=== PATIENT | female | born 1965 | race Two or more races ===

== ENCOUNTER 2021-12-09 12:29 | Emergency (ER) | payer SELFPAY ==
[~2021-12-09] VITALS: Ht 154.9 cm; Wt 81.6 kg
[2021-12-09] MEDS ORDERED: DexAMETHasone SOD PHOS 10MG/1ML VIAL INJ IM ONE (14:30)
[2021-12-09] MEDS ORDERED: cefTRIAXone SOD 1,000 MG VL IM ONE (14:30)
[2021-12-09] MEDS ORDERED: AZIT500T66 PO (14:35)
[2021-12-09] MEDS ORDERED: BENZ100C97 PO (14:35)
[2021-12-09 14:52] VITALS: BP 120/79
== END 2021-12-09 15:48 | disposition home or self-care (01) ==
LOC: ER 12:34
DX: J06.9 Acute upper respiratory infection, unspecified (principal); J02.9 Acute pharyngitis, unspecified; Z20.822 Contact with and (suspected) exposure to COVID-19
CPT/HCPCS: 36415; 71046; 87426; 96372; 99284; J0696; J1100

== ENCOUNTER 2022-03-23 04:12 | Emergency (ER) | payer SELFPAY ==
[2022-03-23 04:12] VITALS: BP 123/75
[~2022-03-23 04:12] MED LIST: AZIT500T66 PO; BENZ100C97 PO
[2022-03-23 06:06] LABS: Basophils # (auto) 0.1 10 ^3/uL (0-0.2); Basophils % (auto) 1.2 % (0.0-2.0); Eosinophils # (auto) 0.8 10 ^3/uL (0-0.8); Eosinophils % (auto) 9.7 % (0.0-7.0); Lymphocytes # (auto) 1.9 10 ^3/uL (0.4-5.4); Lymphocytes % (auto) 24.6 % (10.0-50.0); Mean Corpuscular Hemoglobin 31.5 pg (28.0-32.0); Mean Corpuscular Hgb Conc. 34.9 g/dL (32.0-36.0); Mean Corpuscular Volume 90.2 fL (80.0-100.0); Monocytes # (auto) 0.7 10 ^3/uL (0-1.3); Neutrophils # (auto) 4.3 10 ^3/uL (1.6-8.6); Neutrophils % (auto) 55.5 % (37.0-80.0); Nucleated Red Blood Cells % 0.1 %; Red Blood Cells 4.43 10^6/uL (4.0-5.20); Red Cell Distribution Width 13.3 % (11.8-14.3); White Blood Cell 7.7 10^3/uL (4.4-10.8)
[2022-03-23 06:23] LABS: Albumin 3.6 g/dL (3.4-5.0); Calcium 9.1 mg/dL (8.5-10.1); Potassium 3.7 mmol/L (3.5-5.1)
[2022-03-23 06:32] LABS: Bilirubin, Total 0.4 mg/dL (0.2-1.0); Total Protein 6.8 g/dL (6.4-8.2)
[2022-03-24] MEDS ORDERED: PRED20TA2 PO (02:17)
== END 2022-03-23 11:41 | disposition left against medical advice (07) ==
LOC: ER 04:12
DX: R06.02 Shortness of breath (principal); R05.9 Cough, unspecified; Z53.21 Procedure and treatment not carried out due to patient leaving prior to being seen by health care provider
CPT/HCPCS: 36415; 71045; 80053; 83880; 84484; 85025; 93005

== ENCOUNTER 2022-03-23 19:36 | Emergency (ER) | payer BC, OTHER ==
[~2022-03-23] VITALS: Ht 154.9 cm; Wt 88.5 kg
[2022-03-24] MEDS ORDERED: PRED20TA2 PO (02:17)
[2022-03-24 02:22] VITALS: BP 126/82
== END 2022-03-24 02:34 | disposition home or self-care (01) ==
LOC: ER 19:36
DX: R05.3 Chronic cough (principal); I10 Essential (primary) hypertension
CPT/HCPCS: 93005

== ENCOUNTER 2022-09-05 20:59 | Inpatient (IN) | payer BC ==
[~2022-09-05] VITALS: Ht 152.4 cm; Wt 96.8 kg
[~2022-09-05 20:59] MED LIST changes: +PRED20TA2 PO
[2022-09-05 21:29] LABS: Basophils # (auto) 0.1 10 ^3/uL (0-0.2); Basophils % (auto) 0.8 % (0.0-2.0); Eosinophils # (auto) 0.1 10 ^3/uL (0-0.8); Eosinophils % (auto) 0.7 % (0.0-7.0); Hematocrit 44.4 % (36.0-46.0); Hemoglobin 14.7 g/dL (12.2-16.2); Lymphocytes # (auto) 1.4 10 ^3/uL (0.4-5.4); Lymphocytes % (auto) 10.1 % (10.0-50.0); Mean Corpuscular Hemoglobin 29.8 pg (28.0-32.0); Mean Corpuscular Hgb Conc. 33.1 g/dL (32.0-36.0); Monocytes # (auto) 0.8 10 ^3/uL (0-1.3); Monocytes % (auto) 5.9 % (0.0-12.0); Neutrophils # (auto) 11.5 10 ^3/uL (1.6-8.6); Neutrophils % (auto) 82.5 % (37.0-80.0); Red Blood Cells 4.94 10^6/uL (4.0-5.20); Red Cell Distribution Width 13.5 % (11.8-14.3)
[2022-09-05 21:49] LABS: Albumin 4.1 g/dL (3.4-5.0); Calcium 9.3 mg/dL (8.5-10.1); Potassium 5.2 mmol/L (3.5-5.1)
[2022-09-05 21:54] LABS: BUN/Creatinine Ratio 20.2; Bilirubin, Total 0.9 mg/dL (0.2-1.0); CRP High Sensitivity 0.34 mg/dL (< 0.3); Total Protein 7.7 g/dL (6.4-8.2)
[2022-09-05] MEDS ORDERED: SODIUM CHLORIDE 0.9% 1,000 ML IV ONE (23:45)
[2022-09-05] MEDS ORDERED: fentaNYL CITRATE 100 MCG/2 ML VL IV ONE (23:45)
[2022-09-05] MEDS ORDERED: PIPERACILLIN-TAZOB 3.375GM 100 ML IV ONE (23:45)
[2022-09-05] MEDS ORDERED: ONDANSETRON HCL 4 MG/2 ML VIAL IV ONE (23:45)
[2022-09-06] VITALS (7 sets, daily range): BP systolic 100–142; BP diastolic 66–84
[2022-09-06] MEDS ORDERED: fentaNYL CITRATE 100 MCG/2 ML VL IM ONE
[2022-09-06] MEDS ORDERED: ONDANSETRON HCL 4 MG/2 ML VIAL IV PRN (00:45)
[2022-09-06] MEDS ORDERED: ACETAMINOPHEN 325 MG TAB PO PRN (00:45)
[2022-09-06] MEDS ORDERED: DOCUSATE SOD 100 MG CAP PO PRN (00:45)
[2022-09-06] MEDS ORDERED: NITROGLYCERIN 0.4 MG SL TAB SL PRN (02:30)
[2022-09-06] MEDS ORDERED: MORPHINE SULFATE INJ 2 MG/ml SYRG IV PRN (02:30)
[2022-09-06] MEDS: cefTRIAXone 1GM/50ML D5W 50 ML IV SCH (03:39)
[2022-09-06] MEDS: metroNIDAZOLE 500MG/100ML 100 ML IV SCH ×3 (04:12→20:36)
[2022-09-06] MEDS: SOD CHL 0.45% 1,000 ML IV SCH ×3 (04:13→21:08)
[2022-09-06 04:17] LABS: Basophils # (auto) 0.1 10 ^3/uL (0-0.2); Basophils % (auto) 0.4 % (0.0-2.0); Eosinophils # (auto) 0 10 ^3/uL (0-0.8); Eosinophils % (auto) 0.1 % (0.0-7.0); Hematocrit 41.6 % (36.0-46.0); Lymphocytes # (auto) 0.9 10 ^3/uL (0.4-5.4); Lymphocytes % (auto) 7.3 % (10.0-50.0); Mean Corpuscular Hemoglobin 30.3 pg (28.0-32.0); Mean Corpuscular Hgb Conc. 33.7 g/dL (32.0-36.0); Mean Corpuscular Volume 89.9 fL (80.0-100.0); Monocytes # (auto) 0.6 10 ^3/uL (0-1.3); Monocytes % (auto) 4.8 % (0.0-12.0); Neutrophils # (auto) 10.3 10 ^3/uL (1.6-8.6); Neutrophils % (auto) 87.4 % (37.0-80.0); Red Blood Cells 4.64 10^6/uL (4.0-5.20); Red Cell Distribution Width 13.5 % (11.8-14.3); White Blood Cell 11.8 10^3/uL (4.4-10.8)
[2022-09-06] MEDS: HYDROcodone-ACET 5/325MG TAB PO PRN (04:23)
[2022-09-06 04:33] LABS: INR 0.97 (0.9-1.15); Partial Thromboplastin Time 30.7 sec (24.6-33.4)
[2022-09-06 04:36] LABS: Potassium 3.6 mmol/L (3.5-5.1)
[2022-09-06 04:41] LABS: Albumin 3.9 g/dL (3.4-5.0)
[2022-09-06 04:43] LABS: Bilirubin, Total 1.2 mg/dL (0.2-1.0); Total Protein 7.2 g/dL (6.4-8.2)
[2022-09-06 05:00] LABS: Urine Bacteria FEW /hpf (None Seen); Urine Blood TRACE /uL (Negative); Urine Hyaline Cast FEW /lpf (0 - 2); Urine Mucus FEW (None Seen); Urine Specific Gravity 1.025 (1.001-1.035); Urine WBC 1 /hpf (0 - 5)
[2022-09-06] MEDS ORDERED: LEVO112T4 PO (08:13)
[2022-09-06] MEDS ORDERED: HYDR25TA5 PO (08:13)
[2022-09-06] MEDS ORDERED: INFLUENZA QUAD 2022-2023 0.5 ML SYRG IM ONE (08:15)
[2022-09-06] MEDS ORDERED: SUCCINYLCHOLINE CHLORIDE 20 MG/ML 10ML VIAL IV ONE (09:28)
[2022-09-06] MEDS ORDERED: fentaNYL CITRATE 100 MCG/2 ML VL ONE (09:31)
[2022-09-06] MEDS ORDERED: LIDOCAINE 2% (LOCAL ANESTH.) PF 5ml SDV ONE (09:31)
[2022-09-06] MEDS ORDERED: DexAMETHasone SOD PHOS 10MG/1ML VIAL INJ ONE (09:31)
[2022-09-06] MEDS ORDERED: ONDANSETRON HCL 4 MG/2 ML VIAL ONE (09:31)
[2022-09-06] MEDS ORDERED: KETOROLAC TROMETH 60MG/2ML VIAL ONE (09:31)
[2022-09-06] MEDS ORDERED: MIDAZOLAM HCL 2MG/2ML 2ml VIAL (1mg/ml) ONE (09:31)
[2022-09-06] MEDS ORDERED: PROPOFOL 10 MG/ML 20 ML IV ONE (09:32)
[2022-09-06] MEDS ORDERED: ROCURONIUM 10MG/ML 10ML VIAL IV ONE (09:34)
[2022-09-06] MEDS ORDERED: SUGAMMADEX 200mg/2ml Vial (100MG/ML) IV ONE (10:05)
[2022-09-06] MEDS ORDERED: HYDROmorphone HCL 2 MG/ML VL/or syr IV PRN ×2 (11:00)
[2022-09-06] MEDS ORDERED: LABETALOL HCL 5 MG/ML 4ML SYRINGE IV PRN (11:00)
[2022-09-06] MEDS ORDERED: METOCLOPRAMIDE HCL 5MG/ml INJ 2ml VIAL IV PRN (11:00)
[2022-09-06] MEDS: MORPHINE SULFATE INJ 2 MG/ml SYRG IV PRN ×2 (16:23→20:37)
[2022-09-07] MEDS: cefTRIAXone 1GM/50ML D5W 50 ML IV SCH (02:25)
[2022-09-07] MEDS: metroNIDAZOLE 500MG/100ML 100 ML IV SCH ×3 (04:09→20:27)
[2022-09-07 04:12] LABS: Basophils # (auto) 0 10 ^3/uL (0-0.2); Basophils % (auto) 0.4 % (0.0-2.0); Eosinophils # (auto) 0 10 ^3/uL (0-0.8); Hematocrit 37.2 % (36.0-46.0); Hemoglobin 12.5 g/dL (12.2-16.2); Lymphocytes # (auto) 0.9 10 ^3/uL (0.4-5.4); Lymphocytes % (auto) 7.8 % (10.0-50.0); Mean Corpuscular Hemoglobin 30.1 pg (28.0-32.0); Mean Corpuscular Hgb Conc. 33.6 g/dL (32.0-36.0); Mean Corpuscular Volume 89.6 fL (80.0-100.0); Monocytes # (auto) 1.1 10 ^3/uL (0-1.3); Monocytes % (auto) 9.5 % (0.0-12.0); Neutrophils # (auto) 9.2 10 ^3/uL (1.6-8.6); Neutrophils % (auto) 82.3 % (37.0-80.0); Red Blood Cells 4.15 10^6/uL (4.0-5.20); Red Cell Distribution Width 13.3 % (11.8-14.3); White Blood Cell 11.2 10^3/uL (4.4-10.8)
[2022-09-07 04:42] LABS: Potassium 4.2 mmol/L (3.5-5.1)
[2022-09-07 04:51] LABS: Albumin 3.2 g/dL (3.4-5.0); BUN/Creatinine Ratio 27.2; Bilirubin, Total 0.6 mg/dL (0.2-1.0); Calcium 8.8 mg/dL (8.5-10.1); Total Protein 6.1 g/dL (6.4-8.2)
[2022-09-07 05:04] VITALS: BP 104/62
[2022-09-07] MEDS: LEVOTHYROXINE SODIUM 112 MCG TAB PO SCH (06:32)
[2022-09-07] MEDS: HCTZ 25 MG TAB PO SCH (06:40)
[2022-09-07] MEDS: POTASSIUM CHL 10 Meq TABLET PO SCH (09:11)
[2022-09-07] MEDS: HYDROcodone-ACET 5/325MG TAB PO PRN ×2 (09:11→20:31)
[2022-09-07 09:29] VITALS: BP 107/55
[2022-09-07 13:06] VITALS: BP 101/54
[2022-09-07] MEDS ORDERED: THROAT LOZENGES(CEPASTAT) MT PRN (14:15)
[2022-09-07] MEDS: SOD CHL 0.45% 1,000 ML IV SCH (16:54)
[2022-09-07 17:14] VITALS: BP 109/70
[2022-09-07 21:33] VITALS: BP 102/59
[2022-09-08] MEDS: HYDROcodone-ACET 5/325MG TAB PO PRN ×2 (01:58→20:28)
[2022-09-08] MEDS: cefTRIAXone 1GM/50ML D5W 50 ML IV SCH (02:31)
[2022-09-08] MEDS: metroNIDAZOLE 500MG/100ML 100 ML IV SCH ×3 (04:21→20:28)
[2022-09-08 04:45] VITALS: BP 118/75
[2022-09-08] MEDS: HCTZ 25 MG TAB PO SCH (06:32)
[2022-09-08] MEDS: LEVOTHYROXINE SODIUM 112 MCG TAB PO SCH (06:32)
[2022-09-08 08:00] VITALS: BP 113/64
[2022-09-08] MEDS: ENOXAPARIN SOD 30 MG/0.3 ML SYRINGE SC SCH (09:33)
[2022-09-08] MEDS: POTASSIUM CHL 10 Meq TABLET PO SCH (09:33)
[2022-09-08 12:00] VITALS: BP 118/64
[2022-09-08] MEDS: SOD CHL 0.45% 1,000 ML IV SCH (12:28)
[2022-09-08] MEDS ORDERED: LEVO500T31 PO (15:03)
[2022-09-08] MEDS ORDERED: POTA-167 PO (15:03)
[2022-09-08] MEDS ORDERED: METR500T PO (15:03)
[2022-09-08 15:42] VITALS: BP 118/64
[2022-09-08 16:00] VITALS: BP 113/64
[2022-09-08 16:13] LABS: Basophils # (auto) 0.1 10 ^3/uL (0-0.2); Eosinophils # (auto) 0.2 10 ^3/uL (0-0.8); Eosinophils % (auto) 2.8 % (0.0-7.0); Hemoglobin 12.4 g/dL (12.2-16.2); Lymphocytes # (auto) 1.9 10 ^3/uL (0.4-5.4); Lymphocytes % (auto) 25.3 % (10.0-50.0); Mean Corpuscular Hemoglobin 30.1 pg (28.0-32.0); Mean Corpuscular Hgb Conc. 33.4 g/dL (32.0-36.0); Monocytes # (auto) 0.7 10 ^3/uL (0-1.3); Monocytes % (auto) 9.6 % (0.0-12.0); Neutrophils # (auto) 4.6 10 ^3/uL (1.6-8.6); Neutrophils % (auto) 61.3 % (37.0-80.0); Red Blood Cells 4.11 10^6/uL (4.0-5.20); Red Cell Distribution Width 13.3 % (11.8-14.3); White Blood Cell 7.4 10^3/uL (4.4-10.8)
[2022-09-08 22:18] VITALS: BP 119/80
[2022-09-09] MEDS: cefTRIAXone 1GM/50ML D5W 50 ML IV SCH (02:02)
[2022-09-09] MEDS: metroNIDAZOLE 500MG/100ML 100 ML IV SCH ×2 (04:36→11:38)
[2022-09-09 05:34] VITALS: BP 131/79
[2022-09-09] MEDS: LEVOTHYROXINE SODIUM 112 MCG TAB PO SCH (06:04)
[2022-09-09] MEDS: HCTZ 25 MG TAB PO SCH (06:05)
[2022-09-09 08:00] VITALS: BP 130/78
[2022-09-09] MEDS: SOD CHL 0.45% 1,000 ML IV SCH (08:45)
[2022-09-09] MEDS: POTASSIUM CHL 10 Meq TABLET PO SCH (10:04)
[2022-09-09] MEDS: ENOXAPARIN SOD 30 MG/0.3 ML SYRINGE SC SCH (10:05)
[2022-09-09 12:00] VITALS: BP 132/69
== END 2022-09-09 12:30 | disposition home or self-care (01) | DRG 342 ==
LOC: ER 20:59 → OVERFLOW 09-06 02:29 → CENTRAL 09-06 04:54
PROVIDERS: ADMIT Nurse Practitioner Family; ATTEND Internal Medicine
PROC: 0DTJ4ZZ Resection of Appendix, Percutaneous Endoscopic Approach (ICD-10-PCS; principal; 2022-09-06 09:37)
DX: K35.80 Unspecified acute appendicitis (principal); Z68.41 Body mass index [BMI] 40.0-44.9, adult; I10 Essential (primary) hypertension; E66.01 Morbid (severe) obesity due to excess calories; E03.9 Hypothyroidism, unspecified; E87.5 Hyperkalemia; K56.41 Fecal impaction; Z20.822 Contact with and (suspected) exposure to COVID-19
CPT/HCPCS: 36415; 74176; 80053; 81001; 83605; 83690; 84484; 85025; 85610; 85730; 86141; 86850; 86900; 86901; 87040; 87426; 93005; 96361; 96365; 96372; 96375; G0378; J0330; J0696; J1100; J1885; J2001; J2250; J2405; J2543; J2704; J3490

== ENCOUNTER 2024-06-04 10:28 | Emergency (ER) | payer BC, OTHER ==
[~2024-06-04] VITALS: Ht 154.9 cm; Wt 87.0 kg
[~2024-06-04 10:28] MED LIST changes: -AZIT500T66 PO; -BENZ100C97 PO; +HYDR25TA5 PO; +LEVO112T4 PO; +LEVO500T31 PO; +METR500T PO; +POTA-211 PO; -PRED20TA2 PO
[2024-06-04] MEDS ORDERED: TRAM-626 PO (11:58)
[2024-06-04] MEDS ORDERED: AUG875T PO (11:58)
[2024-06-04 12:07] VITALS: BP 135/76; PULSE 70; RESP 20; TEMP 98.4; O2SAT 97
[2024-06-04] MEDS: HYDROcodone-ACET 5/325MG TAB PO ONE (12:07)
== END 2024-06-04 12:33 | disposition home or self-care (01) ==
LOC: ER 10:28
DX: K04.7 Periapical abscess without sinus (principal); H66.91 Otitis media, unspecified, right ear; I10 Essential (primary) hypertension; Z79.899 Other long term (current) drug therapy

== ENCOUNTER 2024-09-02 00:10 | Inpatient (IN) | payer OTHER ==
[2024-09-02] VITALS (12 sets, daily range): BP systolic 127–151; BP diastolic 55–94; PULSE 81–96; RESP 16–19; TEMP 98.4–98.7; O2SAT 91–100
[~2024-09-02] VITALS: Ht 154.9 cm; Wt 87.5 kg
[~2024-09-02 00:10] MED LIST changes: +AUG875T PO; +TRAM-626 PO
--- NOTE | 2024-09-02 00:34 | ED.PDOC ---
SOB-HPI HPI Comments 59-year-old female who came to ER for shortness of breath. Patient does have history of hypertension, asthma, and CHF. Ever since she tested positive for COVID-19 last April 2024, she has been experiencing episodes of productive cough, shortness of breath, chest discomfort, orthopnea. Patient seen in medicated with prednisone, montelukast, inhalers among others but provided only temporary relief. Progressive worsening of shortness of breath prompted patient to come to the ER. Chief Complaint: Shortness of Breath Time Seen by MD: 00:34 Primary Care Provider: Dr. 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 Family History Family History: Reviewed,noncontributory to illness Social History Smoker: Non-Smoker Alcohol: Denies ETOH Use Drugs: Denies Drug Use Lives In: Home Constitutional: denies: chills, diaphoresis, fatigue, fever, malaise, sweats, weakness, others EENTM: reports: nose congestion Respiratory: reports: cough, orthopnea, SOB at rest, shortness of breath, SOB with excertion; denies: hemoptysis, stridor, wheezing, others Cardiovascular: denies: chest pain, dizzy spells, diaphoresis, Dyspnea on exertion, edema, irregular heart beat, left arm pain, lightheadedness, palpitations, PND, syncope, others Gastrointestinal: denies: abdomen distended, abdominal pain, blood streaked bowels, constipated, diarrhea, dysphagia, difficulty swallowing, hematemesis, melena, nausea, poor appetite, poor fluid intake, rectal bleeding, rectal pain, vomiting, others Genitourinary: denies: abnormal vagina bleeding, burning, dyspareunia, dysuria, flank pain, frequency, hematuria, incontinence, pain, , vagina discharge, urgency, others Neurological: denies: dizziness, fainting, headache, left sided numbness, left sided weakness, numbness, paresthesia, pre-existing deficit, right sided numbness, right sided weakness, seizure, speech problems, tingling, tremors, weakness, others Musculoskeletal: denies: back pain, gout, joint pain, joint swelling, muscle pain, muscle stiffness, neck pain, others Integumetry: denies: bruises, change in color, change in hair/nails, dryness, laceration, lesions, lumps, rash, wounds, others Allergic/Immunocompromised: denies: Difficulty Healing, Frequent Infections, Hives, Itching, others Hematologic/Lymphatic: denies: anemia, blood clots, easy bleeding, easy bruising, swollen glands, others Endocrine: denies: excessive hunger, excessive sweating, excessive thirst, excessive urination, flushing, intolerance to cold, intolerance to heat, unexplained weight gain, unexplained weight loss, others Psychiatric: denies: anxiety, bipolar disorder, depression, hopeless, panic disorder, schizophrenia, sleepless, suicidal, others Physical Exam General Appearance: No Apparent Distress, Normal HEENT: Normal ENT Inspection, Pharynx Normal, TMs Normal Neck: Full Range of Motion, Non-Tender, Normal, Normal Inspection Respiratory: Chest Non-Tender, Decreased Breath Sounds, No Accessory Muscle Use, No Respiratory Distress Cardiovascular: No Edema, No JVD, No Murmur, No Gallop, Normal Peripheral Pulses, Regular Rate/Rhythm Breast Exam: Deferred Gastrointestinal: No Organomegaly, Non Tender, No Pulsatile Mass, Normal Bowel Sounds, Soft Genitalia: Deferred Pelvic: Deferred Rectal: Deferred Extremities: No calf tenderness, Normal capillary refill, Normal inspection, Normal range of motion, Non-tender, No pedal edema Musculoskeletal : Apperance: Normal Neurologic: Alert, contract assistant II-XII nml as Tested, No Motor Deficits, Normal Affect, Normal Mood, No Sensory Deficits Cerebellar Function: Normal Reflexes: Normal Skin: Dry, Normal Color, Warm Lymphatic: No Adenopathy Was a procedure done? Was a procedure done?: No Differential Dx Differential Diagnosis: Asthma, CHF, COPD, Myocardial infarction, Pneumonia, Respiratory Distress X-Ray, Labs, Meds, VS Vital Signs Date Time Temp Pulse Resp B/P (MAP) Pulse Ox O2 Delivery O2 Flow Rate FiO2 09/02/24 00:53 94 Room Air* 0 21 09/02/24 00:53 94 Room Air 0.0 09/02/24 00:26 94 09/02/24 00:13 22 95 Room Air* 0 21 09/02/24 00:13 98.6 96 22 151/94 (113) 95 Lab Test 09/02/24 01:23 09/02/24 00:30 Range/Units Troponin I High Sensitivity < 3 L < 3 L </=34 ng/L White Blood Count 9.5 4.4-10.8 10^3/uL Red Blood Count 4.69 4.0-5.20 10^6/uL Hemoglobin 14.1 12.2-16.2 g/dL Hematocrit 42.9 36.0-46.0 % Mean Corpuscular Volume 91.3 80.0-100.0 fL Mean Corpuscular Hemoglobin 30.1 28.0-32.0 pg Mean Corpuscular Hemoglobin Concent 33.0 32.0-36.0 g/dL Red Cell Distribution Width 13.5 11.8-14.3 % Platelet Count 207 140-450 10^3/uL Mean Platelet Volume 8.5 6.9-10.8 fL Neutrophils (%) (Auto) 54.2 37.0-80.0 % Lymphocytes (%) (Auto) 23.1 10.0-50.0 % Monocytes (%) (Auto) 10.3 0.0-12.0 % Eosinophils (%) (Auto) 11.8 H 0.0-7.0 % Basophils (%) (Auto) 0.6 0.0-2.0 % Neutrophils # (Auto) 5.1 1.6-8.6 10 ^3/uL Lymphocytes # (Auto) 2.2 0.4-5.4 10 ^3/uL Monocytes # (Auto) 1.0 0-1.3 10 ^3/uL Eosinophils # (Auto) 1.1 H 0-0.8 10 ^3/uL Basophils # (Auto) 0.1 0-0.2 10 ^3/uL Nucleated Red Blood Cells 0.0 % Sodium Level 144 136-145 mmol/L Potassium Level 3.0 L 3.5-5.1 mmol/L Chloride Level 109 H 98-107 mmol/L Carbon Dioxide Level 30 20-31 mmol/L Anion Gap 5 5-15 Blood Urea Nitrogen 19 9-23 mg/dL Creatinine 0.79 0.550-1.02 mg/dL Glomerular Filtration Rate Calc 85 >90 mL/min BUN/Creatinine Ratio 24.1 H 10.0-20.0 Serum Glucose 97 74-106 mg/dL Calcium Level 9.5 8.7-10.4 mg/dL B-Type Natriuretic Peptide 13.04 0-100 pg/mL Current Medications Medications (Trade) Dose Ordered Sig/Rachael Route Start Time Stop Time Status Last Admin Albuterol (Ventolin Medneb) 5 mg ONCE ONCE NEB 09/02/24 00:30 09/02/24 00:31 DC 09/02/24 00:53 Ipratropium [place] (Atrovent Medneb) 0.5 mg ONCE ONCE NEB 09/02/24 00:30 09/02/24 00:31 DC 09/02/24 00:53 Time of 1ST Reevaluation: 00:30 Reevaluation 1ST: Unchanged Patient Education/Counseling: Diagnosis, Treatment Family Education/Counseling: No Family Present Departure 1 Departure Time of Disposition: 03:54 (Patient presented with chest pain and shortness of breath that was concerning for possible STEMI, ACS, PE, Pneumonia, Muscle Strain, COPD, Dissection. Data: 1. I ordered and reviewed the result of at least 3 labs including a CBC, BMP, and Troponin. 2. I independently interpreted the following tests: EKG which shows sinus arrhythmia and Chest X-ray which shows benign chest.Risk:This patient has a high risk of morbidity due to further diagnostic testing or treatment and may suffer from an acute cardiac or respiratory disorder. Workup reveals concern for COPD exacerbation versus CHF exacerbation and patient should be admitted for further workup and possible expert consultation. ) Impression: Primary Impression: Acute chest pain Additional Impression: Shortness of breath Disposition: ADMITTED INPATIENT Admit to: Med Surg Condition: Serious Critical Care Note Critical Care Time?: Yes (35 min-critical care time only) Critical care comment: Acute shortness of breath Authorized and Performed by: Ruby Gaitan MD Total critical care time: Approximately 34 minutes Due to a high probability of clinically significant, life threatening deterioration, the patient required my highest level of preparedness to intervene emergently and I personally spent this critical care time directly and personally managing the patient. This critical care time included obtaining a history; examining the patient; pulse oximetry; ordering and review of studies; arranging urgent treatment with development of a management plan; evaluation of patient's response to treatment; frequent reassessment; and, discussions with other providers. This critical care time was performed to assess and manage the high probability of imminent, life-threatening deterioration that could result in multi-organ failure. It was exclusive of separately billable procedures and treating other patients and teaching time. Please see my other sections and the rest of the note for further information on patient assessment and treatment. Stability Stability form required: No Heart Score Heart Score: Heart Score Response (Comments) Value History N/A 0 EKG N/A 0 Age N/A 0 Risk Factors N/A 0 Troponin N/A 0 Total 0 I personally scribed for RUBY GAITAN MD ([email or web address]) on 09/02/24 at 00:34. Electronically submitted by Shon Clarke ([email or web address]). RUBY GAITAN MD Sep 02, 2024 00:34
[2024-09-02 00:41] LABS: Basophils # (auto) 0.1 10 ^3/uL (0-0.2); Basophils % (auto) 0.6 % (0.0-2.0); Eosinophils # (auto) 1.1 10 ^3/uL (0-0.8); Eosinophils % (auto) 11.8 % (0.0-7.0); Hematocrit 42.9 % (36.0-46.0); Hemoglobin 14.1 g/dL (12.2-16.2); Lymphocytes # (auto) 2.2 10 ^3/uL (0.4-5.4); Lymphocytes % (auto) 23.1 % (10.0-50.0); Mean Corpuscular Hemoglobin 30.1 pg (28.0-32.0); Mean Corpuscular Volume 91.3 fL (80.0-100.0); Monocytes % (auto) 10.3 % (0.0-12.0); Neutrophils # (auto) 5.1 10 ^3/uL (1.6-8.6); Neutrophils % (auto) 54.2 % (37.0-80.0); Platelet Count (auto) 207 10^3/uL (140-450); Red Blood Cells 4.69 10^6/uL (4.0-5.20); Red Cell Distribution Width 13.5 % (11.8-14.3); White Blood Cell 9.5 10^3/uL (4.4-10.8)
[2024-09-02 00:49] LABS: Chloride 109 mmol/L (98-107); Sodium 144 mmol/L (136-145)
[2024-09-02 00:50] LABS: Anion Gap 5 (5-15); Calcium 9.5 mg/dL (8.7-10.4); Carbon Dioxide 30 mmol/L (20-31)
[2024-09-02] MEDS: ALBUTEROL SULF 2.5 MG/0.5ML(0.5%) NEB SOLN NEB ONE (00:53)
[2024-09-02] MEDS: IPRATROPIUM BROM 0.5 MG/2.5ML INH SOL NEB ONE (00:53)
[2024-09-02 00:55] LABS: BUN/Creatinine Ratio 24.1 (10.0-20.0); Blood Urea Nitrogen 19 mg/dL (9-23); Glucose 97 mg/dL (74-106)
--- NOTE | 2024-09-02 03:30 | DVH ---
Examination: CXRP Clinical Indication: sob Comparison: None. Technique: Frontal radiograph of the chest was obtained. Findings: Lungs are clear and well expanded, with no pulmonary infiltrate or pleural effusion. There is no pneumothorax. The cardiomediastinal silhouette is within normal limits. No acute osseous abnormality is seen. Impression: No acute cardiopulmonary disease is seen. Electronically Signed 09/02/2024 03:21 Zaira Hickey
[2024-09-02] MEDS: POTASSIUM EFFERVESENT TAB 25 MEQ PO ONE (03:59)
[2024-09-02 04:45] LABS: Urine Bacteria None Seen /hpf (None Seen)
[2024-09-02] MEDS ORDERED: hydrALAZINE HCL 20 MG/ML VL IV PRN (04:45)
[2024-09-02] MEDS ORDERED: DOCUSATE SOD 100 MG CAP PO PRN (04:45)
[2024-09-02] MEDS ORDERED: HYDROcodone-ACET 5/325MG TAB PO PRN (04:45)
[2024-09-02 04:52] LABS: Urine Blood Negative /uL (Negative); Urine Clarity Clear (Clear); Urine Color Yellow (Yellow); Urine Mucus FEW (None Seen); Urine Protein, UAD TRACE (Negative); Urine Specific Gravity 1.025 (1.001-1.035); Urine Urobilinogen Normal (Negative); Urine WBC <1 /hpf (0 - 5); Urine pH 6.5 (5.0-9.0)
[2024-09-02] MEDS: SODIUM CHLOR 0.9% PF (SALINE LOCK) 10ML VIAL/SYR IV SCH (06:17)
[2024-09-02] MEDS: methylPREDNISolone SOD SUCC 40 MG/ML VL IV SCH (06:31)
[2024-09-02] MEDS: LEVOTHYROXINE SODIUM 112 MCG TAB PO SCH (06:32)
[2024-09-02] MEDS: FAMOTIDINE (10MG/ML) 2ML VL IV SCH (06:34)
[2024-09-02 06:35] LABS: Basophils # (auto) 0.1 10 ^3/uL (0-0.2); Basophils % (auto) 0.8 % (0.0-2.0); Eosinophils # (auto) 1.1 10 ^3/uL (0-0.8); Eosinophils % (auto) 12.4 % (0.0-7.0); Hematocrit 43.2 % (36.0-46.0); Hemoglobin 14.3 g/dL (12.2-16.2); Lymphocytes # (auto) 1.4 10 ^3/uL (0.4-5.4); Lymphocytes % (auto) 16.2 % (10.0-50.0); Mean Corpuscular Hemoglobin 30.6 pg (28.0-32.0); Mean Corpuscular Hgb Conc. 33.1 g/dL (32.0-36.0); Mean Corpuscular Volume 92.5 fL (80.0-100.0); Monocytes # (auto) 0.7 10 ^3/uL (0-1.3); Monocytes % (auto) 8.4 % (0.0-12.0); Neutrophils # (auto) 5.3 10 ^3/uL (1.6-8.6); Neutrophils % (auto) 62.2 % (37.0-80.0); Nucleated Red Blood Cells % 0.2 %; Platelet Count (auto) 181 10^3/uL (140-450); Red Blood Cells 4.67 10^6/uL (4.0-5.20); Red Cell Distribution Width 13.7 % (11.8-14.3); White Blood Cell 8.5 10^3/uL (4.4-10.8)
[2024-09-02 06:46] LABS: Alanine Aminotransferase 22 U/L (7-40); Alkaline Phosphatase 86 U/L (46-116); Anion Gap 8 (5-15); BUN/Creatinine Ratio 18.2 (10.0-20.0); Blood Urea Nitrogen 12 mg/dL (9-23); Calcium 9.7 mg/dL (8.7-10.4); Carbon Dioxide 26 mmol/L (20-31); Chloride 109 mmol/L (98-107); Glucose 103 mg/dL (74-106); Potassium 3.4 mmol/L (3.5-5.1); Sodium 143 mmol/L (136-145)
[2024-09-02 06:47] LABS: Albumin 4.2 g/dL (3.2-4.8); Aspartate Aminotransferase 11 U/L (13-40)
[2024-09-02 06:48] LABS: Bilirubin, Total 0.8 mg/dL (0.2-1.0); Total Protein 7.5 g/dL (5.7-8.2)
--- NOTE | 2024-09-02 07:22 | DVHHP2 ---
History of Present Illness Reason for Visit: Acute respiratory distress History of Present Illness The patient is a 59-year-old female past medical history of asthma, hypertension, CHF, thyroid disease, and COVID-19 who presented to [facility] ED with complaint of shortness of breaths. Patient reports ever since she tested positive for COVID-19 last April 2024, she has been experiencing episodes of productive cough, shortness of breath, chest discomfort, orthopnea, currently taking prednisone, montelukast, inhalers among others but provided only temporary relief, progressive worsening of shortness of breath today prompted this visit. Patient was seen and evaluated in the ED, laboratory data shows WBC 9.5, platelets 207, sodium 144, potassium 3.0, BUN 19, creatinine 0.79, glucose 97, troponin 3, BNP 13.04, blood pressure 151/94, heart rate 94, temperature 98.6 F, O2 saturation 94% on oxygen. Chest x-ray shows no acute cardiopulmonary disease. Patient was started on IV steroid, given breathing treatment, please see medication orders section in the computer. On my assessment, patient denied chest pain, headache, no dizziness, no diaphoresis, currently on oxygen, no nausea, no vomiting, no fever, no chills. Patient was admitted for further evaluation and medical management. Past Medical History Asthma, CHF, HTN, Thyroid, COVID-19 Past Surgical History Denies all surgeries Family History Reviewed, noncontributory to the management of this case. Past Social History The patient lives at home, denies smoking, alcohol or illicit drugs abuse. Review of Systems Constitutional: No: Fever, Chills, Sweats, Weakness, Malaise, Other Eyes: No: Pain, Vision change, Conjunctivae inflammation, Eyelid inflammation, Other, Redness ENT: Nose congestion; No: Ear pain, Ear discharge, Nose pain, Nose discharge, Mouth pain, Mouth swelling, Throat pain, Throat swelling, Other Respiratory: Cough, Shortness of breath, SOB with excertion, Wheezing, Other (SOB at rest); No: Dry, Hemoptysis, Pleuritic Pain, Sputum, Wheezing Cardiovascular: Chest Pain; No: Palpitations, Orthopnea, Paroxysmal Noc. Dyspnea, Edema, Lt Headedness, Other Gastrointestinal: No: Nausea, Vomiting, Abdominal Pain, Diarrhea, Constipation, Melena, Hematochezia, Other Genitourinary: No Dysuria, No Frequency, No Incontinence, No Hematuria, No Retention, No Other Musculoskeletal: No: other, neck pain, shoulder pain, arm pain, back pain, hand pain, leg pain, foot pain Skin: No: Rash, Lesions, Jaundice, Bruising, Other Neurological: No: Weakness, Numbness, Incoordination, Change in speech, Confusion, Seizures, Other Allergies: Coded Allergies: NO KNOWN ALLERGIES (Unverified , 12/09/21) Medications Current Medications Medications Dose Ordered Sig/Rachael Route Start Time Stop Time Status Last Admin Dose Admin Albuterol 2.5 mg Q4HPRN PRN NEB 09/02/24 04:45 Ipratropium [place] 0.5 mg Q4HPRN PRN NEB 09/02/24 04:45 Methylprednisolone Sodium Succinate 40 mg Q8HR IV 09/02/24 06:00 09/02/24 06:31 40 MG Famotidine 20 mg Q12HR IV 09/02/24 10:00 09/02/24 06:34 20 MG Sodium Chloride 10 ml Q8HR IV 09/02/24 06:00 09/02/24 06:17 10 ML Acetaminophen/ Hydrocodone Bitart 1 tab Q4HP PRN PO 09/02/24 04:45 Ondansetron HCl 4 mg Q4HP PRN IV 09/02/24 04:45 Docusate Sodium 100 mg BIDPRN PRN PO 09/02/24 04:45 Acetaminophen 650 mg Q6HP PRN PO 09/02/24 04:45 Levothyroxine Sodium 112 mcg QAM@0600 PO 09/02/24 06:00 09/02/24 06:32 112 MCG Hydralazine HCl 10 mg Q6HP PRN IV 09/02/24 04:45 Exam Vital Signs Vital Signs Date Time Temp Pulse Resp B/P (MAP) Pulse Ox O2 Delivery O2 Flow Rate FiO2 09/02/24 06:30 86 20 120/70 (87) 94 09/02/24 04:48 98.6 0.0 21 98.6 09/02/24 00:53 Room Air* General Appearance: Alert, Oriented X3, Cooperative, No acute distress HEENT: Atraumatic, PERRLA, EOMI, Mucous membr. moist/pink Respiratory: Normal air movement, Other (Wheezing) Cardiovascular: Regular rate, Normal S1, Normal S2, No murmurs Abdominal: Normal bowel sounds, Soft, No tenderness, No hepatospenomegaly, No masses Extremities: No clubbing, No cyanosis, No edema, Normal pulses, No tenderness/swelling Skin: No rashes, No breakdown, No significant lesion Neuro: Normal gait, Normal speech, Strength at 5/5 X4 ext, Normal tone, Sensation intact, Cranial nerves 3-12 NL, Reflexes 2+ Psych/Mental Status: Mental status NL, Mood NL Labs/Xrays Labs Test 09/02/24 05:45 09/02/24 04:44 09/02/24 01:23 09/02/24 00:30 Range/Units White Blood Count 8.5 4.4-10.8 10^3/uL Red Blood Count 4.67 4.0-5.20 10^6/uL Hemoglobin 14.3 12.2-16.2 g/dL Hematocrit 43.2 36.0-46.0 % Mean Corpuscular Volume 92.5 80.0-100.0 fL Mean Corpuscular Hemoglobin 30.6 28.0-32.0 pg Mean Corpuscular Hemoglobin Concent 33.1 32.0-36.0 g/dL Red Cell Distribution Width 13.7 11.8-14.3 % Platelet Count 181 140-450 10^3/uL Mean Platelet Volume 8.9 6.9-10.8 fL Neutrophils (%) (Auto) 62.2 37.0-80.0 % Lymphocytes (%) (Auto) 16.2 10.0-50.0 % Monocytes (%) (Auto) 8.4 0.0-12.0 % Eosinophils (%) (Auto) 12.4 H 0.0-7.0 % Basophils (%) (Auto) 0.8 0.0-2.0 % Neutrophils # (Auto) 5.3 1.6-8.6 10 ^3/uL Lymphocytes # (Auto) 1.4 0.4-5.4 10 ^3/uL Monocytes # (Auto) 0.7 0-1.3 10 ^3/uL Eosinophils # (Auto) 1.1 H 0-0.8 10 ^3/uL Basophils # (Auto) 0.1 0-0.2 10 ^3/uL Nucleated Red Blood Cells 0.2 % Sodium Level 143 136-145 mmol/L Potassium Level 3.4 L 3.5-5.1 mmol/L Chloride Level 109 H 98-107 mmol/L Carbon Dioxide Level 26 20-31 mmol/L Anion Gap 8 5-15 Blood Urea Nitrogen 12 9-23 mg/dL Creatinine 0.66 0.550-1.02 mg/dL Glomerular Filtration Rate Calc 100 >90 mL/min BUN/Creatinine Ratio 18.2 10.0-20.0 Serum Glucose 103 74-106 mg/dL Calcium Level 9.7 8.7-10.4 mg/dL Total Bilirubin 0.8 0.2-1.0 mg/dL Aspartate Amino Transferase (AST) 11 L 13-40 U/L Alanine Aminotransferase (ALT) 22 7-40 U/L Alkaline Phosphatase 86 46-116 U/L Total Protein 7.5 5.7-8.2 g/dL Albumin 4.2 3.2-4.8 g/dL Thyroid Stimulating Hormone (TSH) 0.98 0.55-4.78 uIU/mL Urine Color Yellow Yellow Urine Clarity Clear Clear Urine pH 6.5 5.0-9.0 Urine Specific [place] 1.025 1.001-1.035 Urine Protein Trace H Negative Urine Ketones Trace Negative Urine Blood Negative Negative /uL Urine Nitrite Negative Negative Urine Bilirubin Negative Negative Urine Urobilinogen Normal Negative mg/dL Urine Leukocyte Esterase Negative Negative /uL Urine RBC 3 0 - 4 /hpf Urine WBC <1 0 - 5 /hpf Urine Squamous Epithelial Cells Few <5 /hpf Urine Bacteria None seen None Seen /hpf Urine Mucus Few None Seen Urine Glucose Normal Normal mg/dL Troponin I High Sensitivity < 3 L </=34 ng/L B-Type Natriuretic Peptide 13.04 0-100 pg/mL PATIENT: BEVERLEY HUBBARD ACCT: [id number] UNIT: [id number] : 1965 LOC: ER ROOM / BED: / AGE / SEX: 59 / F ADM STATUS: REG ER SERVICE [id number] ORDERING PHYSICIAN: RUBY GAITAN MD PROCEDURE(s): CXRP - CHEST PORTABLE REASON: sob ORDER NUMBER(s): [id number], ACCESSION NUMBER(s): [id number] Examination: CXRP Clinical Indication: sob Comparison: None. Technique: Frontal radiograph of the chest was obtained. Findings: Lungs are clear and well expanded, with no pulmonary infiltrate or pleural effusion. There is no pneumothorax. The cardiomediastinal silhouette is within normal limits. No acute osseous abnormality is seen. Impression: No acute cardiopulmonary disease is seen. Assessment/Plan Assessment/Plan Acute respiratory failure with hypoxia Acute chest pain Asthma with acute exacerbation Plan 1. Admit to telemetry unit 2. Breathing treatment 3. Pain control management 4. Management of fluids and electrolytes 5. Consultation for pulmonology 6. Diagnostic tests chest x-ray 7. DVT prophylaxis-on SCDs 8. Repeat labs CBC, CMP in a.m. 9. Continue with current medical management 10. Treatment plan discussed with patient and RN. Patient verbalized understanding. Plan discussed with: Patient, Other (RN) My Orders Orders - TRAY BAH DNP Procedure Category Date Status Time Albuterol Medneb PHA 09/02/24 In Process (Ventolin Medneb) 04:45 Ipratropium Medneb PHA 09/02/24 In Process (Atrovent Medneb) 04:45 Methylprednisolone PHA 09/02/24 In Process Sod Succ (Solu Medrol 06:00 Famotidine Injection PHA 09/02/24 In Process (Pepcid Injection) 10:00 *Consult CONS 09/02/24 Transmitted / 04:31 Allergies KANDIS 09/02/24 In Process 04:31 Code Status CODE 09/02/24 Transmitted 04:31 Sodium Chloride Lock PHA 09/02/24 In Process (Saline Lock Ns) 06:00 Oxygen Per Hour RT 09/02/24 Transmitted 04:31 Hydrocodone-Acet PHA 09/02/24 In Process 5/325mg Tab ([place] 04:45 Ondansetron Hcl PHA 09/02/24 In Process (Zofran) 04:45 Docusate Sodium PHA 09/02/24 In Process Capsule (Colace 04:45 Complete Blood Count LAB 09/03/24 Verified 04:00 Comprehensive LAB 09/03/24 Verified Metabolic Panel 04:00 Cardiac DIET 09/02/24 Transmitted Diet-2gna,Lofat,Lochol Breakfast Condition: Serious KANDIS 09/02/24 In Process 04:31 Acetaminophen Tablet PHA 09/02/24 In Process (Tylenol Tablet) 04:45 Bedrest With Bathroom KANDIS 09/02/24 In Process Privileg 04:31 Sequential KANDIS 09/02/24 In Process Compression Device Levothyroxine Tablet PHA 09/02/24 In Process (Synthroid Tablet) 06:00 Hydralazine Injection PHA 09/02/24 In Process (Apresoline Inject 04:45 Complete Blood Count LAB 09/02/24 Logged 07:19 Comprehensive LAB 09/02/24 Logged Metabolic Panel 07:19 Admit ADMIT 09/02/24 Verified 07:21 Nitroglycerin PHA 09/02/24 Verified Sublingual (Ntrostat 07:30 Morphine Sulfate PHA 09/02/24 Verified Injection 07:30 Rhythm Strips Once KANDIS 09/02/24 Verified Every Shift 07:21 Oxygen By Nasal RT 09/02/24 Verified Cannula 07:21 Problem List: (1) Acute respiratory failure with hypoxia (2) Acute chest pain (3) Asthma with acute exacerbation Date of Service: Sep 02, 2024 Billing Provider: TRAY BAH DNP Common Visit Codes: [id number] INP/OBS CARE (HIGH) TRAY BAH DNP Sep 02, 2024 07:22
[2024-09-02] MEDS: ALBUTEROL SULF 2.5 MG/0.5ML(0.5%) NEB SOLN NEB PRN (07:24)
[2024-09-02] MEDS: IPRATROPIUM BROM 0.5 MG/2.5ML INH SOL NEB PRN (07:24)
[2024-09-02] MEDS ORDERED: MORPHINE SULFATE INJ 2 MG/ml SYRG IV PRN (07:30)
[2024-09-02] MEDS ORDERED: NITROGLYCERIN 0.4 MG SL TAB SL PRN (07:30)
[2024-09-02] MEDS: methylPREDNISolone SOD SUCC 125 MG/2 ML VL IV ONE (08:58)
--- NOTE | 2024-09-02 11:10 | DVHINCON2 ---
Date of service: Sep 02, 2024 Referring Physician DOLORES Colbert Reason for Consultation DOLORES Colbert History of Present Illness 59-year-old woman history of asthma, hypertension, CHF, thyroid disease, COVID- 19 infection who presented with a chief complaint of shortness of breath. She was bilateral wheezing. She has a diagnosis of COVID-19 in May 14, 2024. She has been experiencing long COVID symptoms. She was previously on inhalers, courses of steroids with only temporary relief of her symptoms. She had a chest x-ray performed that demonstrated no acute opacities. No pleural effusion or pneumothorax. She received IV steroids, bronchodilators. She continues to have wheezing. No fever or chills. No nausea or vomiting. Pulmonary consultation is called due to acute hypoxic respiratory failure and acute exacerbation of asthma. Review of systems: 14 point review of systems is negative unless otherwise noted above. Past medical history: asthma, hypertension, CHF, thyroid disease, prior COVID-19 infection Past surgical history: None mentioned in prior surgeries. Medications: Reviewed Allergies: No known drug allergies. Family history: No family history of premature CAD. No family history of lung disease Social history: Nonsmoker. No alcohol or illicit drug use. Family History: Diabetes mellitus G8 MOTHER FH: emphysema G8 MOTHER Hypertension G8 MOTHER Allergies: Coded Allergies: NO KNOWN ALLERGIES (Unverified , 12/09/21) Home Meds Active Scripts Tramadol HCl (Tramadol HCl) 50 Mg Tab, 50 MG PO BID, #20 TAB Prov:RANJAN NATHAN 06/04/24 Amoxicillin & Pot Clavulanate (AUGMENTIN TABLET) 875 Mg Tb, 875 MG PO BID for 10 Days, #20 TAB Prov:RANJAN NATHAN 06/04/24 Levofloxacin (Levaquin) 500 Mg Tab, 500 MG PO DAILY, #30 MG Prov:YOLETTE THOMPSON MD 09/08/22 Metronidazole (Flagyl) 500 Mg Tab, 500 MG PO TID, #21 MG Prov:YOLETTE THOMPSON MD 09/08/22 Potassium Chloride (Klor-Con 10) 10 Meq Tab, 10 MEQ PO DAILY, #30 TAB Prov:YOLETTE THOMPSON MD 09/08/22 Reported Medications Hctz (Hydrochlorothiazide) 25 Mg Tab, 1 TAB PO QAM 09/06/22 Levothyroxine Sodium (Levothyroxine Sodium) 112 Mcg Tab, 1 TAB PO QAM 09/06/22 Current Medications Current Medications Medications (Trade) Dose Ordered Sig/Rachael Route PRN Reason Start Time Stop Time Status Last Admin Albuterol (Ventolin Medneb) 2.5 mg Q4HPRN PRN NEB SHORTNESS OF BREATH 09/02/24 04:45 09/02/24 07:24 Ipratropium [place] (Atrovent Medneb) 0.5 mg Q4HPRN PRN NEB SHORTNESS OF BREATH 09/02/24 04:45 09/02/24 07:24 Methylprednisolone Sodium Succinate (Solu Medrol) 40 mg Q8HR IV 09/02/24 06:00 09/02/24 06:31 Famotidine (Pepcid Injection) 20 mg Q12HR IV 09/02/24 10:00 09/02/24 06:34 Sodium Chloride (Saline Lock Ns) 10 ml Q8HR IV 09/02/24 06:00 09/02/24 06:17 Acetaminophen/ Hydrocodone Bitart ([place] 5/325MG Tab) 1 tab Q4HP PRN PO MODERATE PAIN (4-6 PAIN SCALE) 09/02/24 04:45 Ondansetron HCl (Zofran) 4 mg Q4HP PRN IV NAUSEA / VOMITING 09/02/24 04:45 Docusate Sodium (Colace Capsule) 100 mg BIDPRN PRN PO FOR CONSTIPATION 09/02/24 04:45 Acetaminophen (Tylenol Tablet) 650 mg Q6HP PRN PO PAIN SCALE 1-3 OR TEMP>100.4 09/02/24 04:45 Levothyroxine Sodium (Synthroid Tablet) 112 mcg QAM@0600 PO 09/02/24 06:00 09/02/24 06:32 Hydralazine HCl (Apresoline Injection) 10 mg Q6HP PRN IV SBP>150 09/02/24 04:45 Nitroglycerin (Ntrostat Sublingual) 0.4 mg Q5MINP PRN SL FOR CHEST PAIN 09/02/24 07:30 Morphine Sulfate 2 mg Q30M PRN IV FOR CHEST PAIN 09/02/24 07:30 Vital Signs Vital Signs Date Time Temp Pulse Resp B/P (MAP) Pulse Ox O2 Delivery O2 Flow Rate FiO2 09/02/24 10:33 94 24 139/56 (83) 94 09/02/24 07:26 98.2 98.2 09/02/24 07:26 Nasal Cannula* 2 28 Physical Exam Gen.: Patient lying in bed in no apparent distress. On supplemental oxygen. Head: Normocephalic, atraumatic Eyes: EOMI/PERRLA. Ears: Normal hearing. Normal anatomy. Neck/trachea: Trachea midline, supple. Nose: Normal external anatomy. Mouth: Moist mucous membranes. Chest: Decreased air entry bilaterally. Bilateral wheezing. No rhonchi. Cardio vascular: Positive S1, positive S2. Regular rate and rhythm. Abdomen: Obesity, Positive bowel sounds in all 4 quadrants. Soft, non-tender, non-distended. : Deferred. Rectal: Deferred Skin: Warm, dry. Extremities: 2+ radial pulses bilaterally. No lower extremity edema. Neuro: Awake, alert, oriented x3. No gross motor or sensory deficits. Cranial nerves II through XII intact. Gait not assessed. Labs/Diagnostic Data Labs Test 09/02/24 05:45 09/02/24 04:44 09/02/24 01:23 09/02/24 00:30 Range/Units White Blood Count 8.5 4.4-10.8 10^3/uL Red Blood Count 4.67 4.0-5.20 10^6/uL Hemoglobin 14.3 12.2-16.2 g/dL Hematocrit 43.2 36.0-46.0 % Mean Corpuscular Volume 92.5 80.0-100.0 fL Mean Corpuscular Hemoglobin 30.6 28.0-32.0 pg Mean Corpuscular Hemoglobin Concent 33.1 32.0-36.0 g/dL Red Cell Distribution Width 13.7 11.8-14.3 % Platelet Count 181 140-450 10^3/uL Mean Platelet Volume 8.9 6.9-10.8 fL Neutrophils (%) (Auto) 62.2 37.0-80.0 % Lymphocytes (%) (Auto) 16.2 10.0-50.0 % Monocytes (%) (Auto) 8.4 0.0-12.0 % Eosinophils (%) (Auto) 12.4 H 0.0-7.0 % Basophils (%) (Auto) 0.8 0.0-2.0 % Neutrophils # (Auto) 5.3 1.6-8.6 10 ^3/uL Lymphocytes # (Auto) 1.4 0.4-5.4 10 ^3/uL Monocytes # (Auto) 0.7 0-1.3 10 ^3/uL Eosinophils # (Auto) 1.1 H 0-0.8 10 ^3/uL Basophils # (Auto) 0.1 0-0.2 10 ^3/uL Nucleated Red Blood Cells 0.2 % Sodium Level 143 136-145 mmol/L Potassium Level 3.4 L 3.5-5.1 mmol/L Chloride Level 109 H 98-107 mmol/L Carbon Dioxide Level 26 20-31 mmol/L Anion Gap 8 5-15 Blood Urea Nitrogen 12 9-23 mg/dL Creatinine 0.66 0.550-1.02 mg/dL Glomerular Filtration Rate Calc 100 >90 mL/min BUN/Creatinine Ratio 18.2 10.0-20.0 Serum Glucose 103 74-106 mg/dL Calcium Level 9.7 8.7-10.4 mg/dL Total Bilirubin 0.8 0.2-1.0 mg/dL Aspartate Amino Transferase (AST) 11 L 13-40 U/L Alanine Aminotransferase (ALT) 22 7-40 U/L Alkaline Phosphatase 86 46-116 U/L Total Protein 7.5 5.7-8.2 g/dL Albumin 4.2 3.2-4.8 g/dL Thyroid Stimulating Hormone (TSH) 0.98 0.55-4.78 uIU/mL Urine Color Yellow Yellow Urine Clarity Clear Clear Urine pH 6.5 5.0-9.0 Urine Specific [place] 1.025 1.001-1.035 Urine Protein Trace H Negative Urine Ketones Trace Negative Urine Blood Negative Negative /uL Urine Nitrite Negative Negative Urine Bilirubin Negative Negative Urine Urobilinogen Normal Negative mg/dL Urine Leukocyte Esterase Negative Negative /uL Urine RBC 3 0 - 4 /hpf Urine WBC <1 0 - 5 /hpf Urine Squamous Epithelial Cells Few <5 /hpf Urine Bacteria None seen None Seen /hpf Urine Mucus Few None Seen Urine Glucose Normal Normal mg/dL Troponin I High Sensitivity < 3 L </=34 ng/L B-Type Natriuretic Peptide 13.04 0-100 pg/mL Assessment Impression: Acute hypoxic respiratory failure secondary to acute exacerbation of eosinophilic Asthma Acute exacerbation of asthma Acute chest pain Obesity with a BMI of 35.8 Eosinophilic asthma, 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 No acute opacities. No pleural effusion or pneumothorax. It appears patient's symptoms are more related to eosinophilic asthma. She was had multiple steroid courses. There has been improvement while patient is on steroids. Recommend to discharge patient once stable on a tapering course of steroids. We will need to get prior authorization as outpatient for immunologic medications given eosinophilic asthma. Supplemental oxygen Keep O2 saturation above 92%. Bronchodilators Pulmicort twice daily IV steroids , Solu-Medrol 40 mg IV every 8 hours. Accu-Cheks, insulin sliding scale. Recommend outpatient evaluation for TERRIE as patient has risk factors based on STOP BANG criteria. GI prophylaxis-Pepcid Prognosis: Guarded given multiple comorbidities. Rest of plan per hospitalist and other consultants. Thank you DOLORES Colbert for allowing me to participate in this patient's care. Further recommendations will depend on patient's clinical course. Please do not hesitate to contact me if you have any questions or concerns. This medical document was created using an electronic medical record system with [employer] dictation system. Although this document has been carefully reviewed, there may still be some phonetic and typographical errors. These areas are purely typographical due to imperfections of the software programs, and do not reflect any compromise in the patient's medical care. Plan discussed with: Patient, Other (RYLEY Cardozo, PUPPET [employer]KER) JEFE CRAMER MD Sep 02, 2024 11:10
[2024-09-02] MEDS: INFLUENZA TRIVALENT 2024-2025 0.5 ML INJ IM ONE (15:45)
[2024-09-02] MEDS: PNEUMOCOCCAL VACC POLYS 25 MCG/0.5 ML VIAL IM ONE (15:45)
[2024-09-02] MEDS: ACETAMINOPHEN 325 MG TAB PO PRN (20:04)
[2024-09-02] MEDS: BUDESONIDE (INHALATION) 0.5 MG/2 ML NEB NEB SCH (21:49)
[2024-09-03] VITALS (12 sets, daily range): BP systolic 108–141; BP diastolic 72–86; PULSE 70–103; RESP 18–20; TEMP 97.6–98.8; O2SAT 90–100
[2024-09-03 06:17] LABS: Basophils # (auto) 0 10 ^3/uL (0-0.2); Basophils % (auto) 0.3 % (0.0-2.0); Eosinophils # (auto) 0 10 ^3/uL (0-0.8); Hematocrit 40.7 % (36.0-46.0); Hemoglobin 13.6 g/dL (12.2-16.2); Lymphocytes # (auto) 0.8 10 ^3/uL (0.4-5.4); Lymphocytes % (auto) 5.9 % (10.0-50.0); Mean Corpuscular Hemoglobin 30.6 pg (28.0-32.0); Mean Corpuscular Hgb Conc. 33.3 g/dL (32.0-36.0); Mean Corpuscular Volume 91.7 fL (80.0-100.0); Monocytes # (auto) 0.6 10 ^3/uL (0-1.3); Monocytes % (auto) 4.2 % (0.0-12.0); Neutrophils # (auto) 12.5 10 ^3/uL (1.6-8.6); Neutrophils % (auto) 89.6 % (37.0-80.0); Nucleated Red Blood Cells % 0.2 %; Platelet Count (auto) 199 10^3/uL (140-450); Red Blood Cells 4.44 10^6/uL (4.0-5.20); Red Cell Distribution Width 13.6 % (11.8-14.3)
[2024-09-03 06:44] LABS: Alanine Aminotransferase 18 U/L (7-40); Albumin 4.3 g/dL (3.2-4.8); Alkaline Phosphatase 78 U/L (46-116); Anion Gap 9 (5-15); Aspartate Aminotransferase 9 U/L (13-40); BUN/Creatinine Ratio 20.8 (10.0-20.0); Blood Urea Nitrogen 15 mg/dL (9-23); Calcium 10.1 mg/dL (8.7-10.4); Carbon Dioxide 22 mmol/L (20-31); Chloride 111 mmol/L (98-107); Glucose 159 mg/dL (74-106); Potassium 3.7 mmol/L (3.5-5.1); Sodium 142 mmol/L (136-145)
[2024-09-03 06:45] LABS: Bilirubin, Total 0.5 mg/dL (0.2-1.0); Total Protein 6.8 g/dL (5.7-8.2)
[2024-09-03] MEDS: ONDANSETRON HCL 4 MG/2 ML VIAL IV PRN (11:38)
--- NOTE | 2024-09-03 16:26 | DVHPN2 ---
Subjective Assuming the care of the patient from today onwards who was under the care of the hospitalist team. Patient is complaining of shortness breath on minimal exertion. Reviewed: Care Plan Changes from previous H/P or p: No Changes Eyes: No Pain, No Vision change, No Conjunctivae inflammation, No Eyelid inflammation, No Other, No Redness ENT: No Ear pain, No Ear discharge, No Nose pain, No Nose discharge; Nose congestion; No Mouth pain, No Mouth swelling, No Throat pain, No Throat swelling, No Other Cardiovascular: Chest Pain; No Palpitations, No Orthopnea, No Paroxysmal Noc. Dyspnea, No Edema, No Lt Headedness, No Other Respiratory: Cough; No Dry; Shortness of breath, SOB with excertion, Wheezing; No Hemoptysis, No Pleuritic Pain, No Sputum; Other (SOB at rest) Gastrointestinal: No Nausea, No Vomiting, No Abdominal Pain, No Diarrhea, No Constipation, No Melena, No Hematochezia, No Other Genitourinary: No Dysuria, No Frequency, No Incontinence, No Hematuria, No Retention, No Other Musculoskeletal: No other, No neck pain, No shoulder pain, No arm pain, No back pain, No hand pain, No leg pain, No foot pain Skin: No Rash, No Lesions, No Jaundice, No Bruising, No Other Objective Vitals Vital Signs Date Time Temp Pulse Resp B/P (MAP) Pulse Ox O2 Delivery O2 Flow Rate FiO2 09/03/24 13:00 97.6 89 18 127/84 (98) 90 97.6 09/03/24 09:59 Room Air* 0 21 Intake/Output Intake and Output 09/03/24 07:00 Intake Total 600 ml Balance 600 ml Intake Oral 600 ml # Voids 4 # Bowel Movements 1 Exam HEENT pupils are reactive Neck is supple CV is S1-S2 regular rate and rhythm Respiratory bilateral expiratory rhonchi GI positive bowel sound Extremity no edema [employer] no motor deficit Medications Current Medications Medications Dose Ordered Sig/Rachael Route Start Time Stop Time Status Last Admin Dose Admin Albuterol 2.5 mg Q4HPRN PRN NEB 09/02/24 04:45 09/03/24 09:59 2.5 MG Ipratropium [place] 0.5 mg Q4HPRN PRN NEB 09/02/24 04:45 09/03/24 09:59 0.5 MG Methylprednisolone Sodium Succinate 40 mg Q8HR IV 09/02/24 06:00 09/03/24 14:09 40 MG Famotidine 20 mg Q12HR IV 09/02/24 10:00 09/03/24 10:00 20 MG Sodium Chloride 10 ml Q8HR IV 09/02/24 06:00 09/03/24 14:09 10 ML Acetaminophen/ Hydrocodone Bitart 1 tab Q4HP PRN PO 09/02/24 04:45 Ondansetron HCl 4 mg Q4HP PRN IV 09/02/24 04:45 09/03/24 11:38 4 MG Docusate Sodium 100 mg BIDPRN PRN PO 09/02/24 04:45 Acetaminophen 650 mg Q6HP PRN PO 09/02/24 04:45 09/02/24 20:04 650 MG Levothyroxine Sodium 112 mcg QAM@0600 PO 09/02/24 06:00 09/03/24 05:07 112 MCG Hydralazine HCl 10 mg Q6HP PRN IV 09/02/24 04:45 Nitroglycerin 0.4 mg Q5MINP PRN SL 09/02/24 07:30 Morphine Sulfate 2 mg Q30M PRN IV 09/02/24 07:30 Budesonide 0.5 mg BID NEB 09/02/24 22:00 09/03/24 09:59 0.5 MG Laboratory Results Laboratory Tests 09/03/24 05:00 Chemistry Test 09/03/24 05:00 Albumin 4.3 g/dL (3.2-4.8) Calcium Level 10.1 mg/dL (8.7-10.4) Total Protein 6.8 g/dL (5.7-8.2) LFT Test 09/03/24 05:00 Alanine Aminotransferase (ALT) 18 U/L (7-40) Alkaline Phosphatase 78 U/L (46-116) Aspartate Amino Transferase (AST) 9 U/L (13-40) L Total Bilirubin 0.5 mg/dL (0.2-1.0) Urinalysis Test 09/02/24 04:44 Urine Color Yellow (Yellow) Urine Clarity Clear (Clear) Urine pH 6.5 (5.0-9.0) Urine Specific [place] 1.025 (1.001-1.035) Urine Protein Trace (Negative) H Urine Ketones Trace (Negative) Urine Blood Negative /uL (Negative) Urine Nitrite Negative (Negative) Urine Bilirubin Negative (Negative) Urine Urobilinogen Normal mg/dL (Negative) Urine Leukocyte Esterase Negative /uL (Negative) Urine RBC 3 /hpf (0 - 4) Urine WBC <1 /hpf (0 - 5) Urine Squamous Epithelial Cells Few /hpf (<5) Urine Bacteria None seen /hpf (None Seen) Urine Mucus Few (None Seen) Urine Glucose Normal mg/dL (Normal) Assessment/Plan Assessment/Plan 59-year-old female with a recent history of COVID-19 few months ago, chronic asthma presented to the hospital with the increasing shortness a breath found to have 1. Acute hypoxic respiratory failure secondary to acute asthma exacerbation 2. Acute asthma exacerbation 3. Morbid obesity class two -continue med nebs O2 supplementation IV Solu-Medrol pulmonary consultation Plan discussed with: Patient Date of Service: Sep 03, 2024 Billing Provider: MICHELA QUEVEDO MD Common Visit Codes: [id number] INP/OBS CARE(MOD) MICHELA QUEVEDO MD Sep 03, 2024 16:26
--- NOTE | 2024-09-03 18:56 | DVHPN2 ---
Progress Note - Dictate Date Seen: Sep 03, 2024 Medical Necessity Reason Pt with a Central, PICC or Fol: No Subjective Patient seen and examined at bedside. Breathing comfortably on room air. Overnight events reviewed. vital signs Vital Sign Date Time Temp Pulse Resp B/P (MAP) Pulse Ox O2 Delivery O2 Flow Rate FiO2 09/03/24 17:00 98.5 77 18 120/72 (88) 98 98.5 09/03/24 09:59 Room Air* 0 21 Total Intake and Output 09/02/24 09/02/24 09/03/24 15:00 23:00 07:00 Intake Total 600 ml Balance 600 ml medications Current Medications Medications Dose Ordered Sig/Rachael Route Start Time Stop Time Status Last Admin Dose Admin Albuterol 2.5 mg Q4HPRN PRN NEB 09/02/24 04:45 09/03/24 09:59 2.5 MG Ipratropium [place] 0.5 mg Q4HPRN PRN NEB 09/02/24 04:45 09/03/24 09:59 0.5 MG Methylprednisolone Sodium Succinate 40 mg Q8HR IV 09/02/24 06:00 09/03/24 14:09 40 MG Famotidine 20 mg Q12HR IV 09/02/24 10:00 09/03/24 10:00 20 MG Sodium Chloride 10 ml Q8HR IV 09/02/24 06:00 09/03/24 14:09 10 ML Acetaminophen/ Hydrocodone Bitart 1 tab Q4HP PRN PO 09/02/24 04:45 Ondansetron HCl 4 mg Q4HP PRN IV 09/02/24 04:45 09/03/24 11:38 4 MG Docusate Sodium 100 mg BIDPRN PRN PO 09/02/24 04:45 Acetaminophen 650 mg Q6HP PRN PO 09/02/24 04:45 09/02/24 20:04 650 MG Levothyroxine Sodium 112 mcg QAM@0600 PO 09/02/24 06:00 09/03/24 05:07 112 MCG Hydralazine HCl 10 mg Q6HP PRN IV 09/02/24 04:45 Nitroglycerin 0.4 mg Q5MINP PRN SL 09/02/24 07:30 Morphine Sulfate 2 mg Q30M PRN IV 09/02/24 07:30 Budesonide 0.5 mg BID NEB 09/02/24 22:00 09/03/24 09:59 0.5 MG objective Gen.: Patient lying in bed in no apparent distress. Breathing on room air. Head: Normocephalic, atraumatic. Eyes: EOMI/PERRLA. Ears: Normal hearing. Normal anatomy. Neck/trachea: Trachea midline, supple. Nose: Normal external anatomy. Mouth: Moist mucous membranes. Chest: Decreased air entry bilaterally. No wheezing or rhonchi. Cardiovascular: Positive S1, positive S2. Regular rate and rhythm. Abdomen: Positive bowel sounds in all 4 quadrants. Soft, non-tender, non- distended. : Deferred. Rectal: Deferred. Skin: Warm, dry. Intact. Extremities: 2+ radial pulses bilaterally. No lower extremity edema. Neuro: Awake, alert, oriented x3. No gross motor or sensory deficits. Cranial nerves II through XII intact. Gait not assessed. 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 No respiratory distress. No new respiratory complaints. Continue bronchodilators Pulmicort BID IV steroids Pepcid for GI prophylaxis. Labs and imaging reviewed. Rest of plan as noted below. Plan: Chest x-ray imaging report reviewed. No acute opacities. No pleural effusion or pneumothorax. It appears patient's symptoms are more related to eosinophilic asthma. She has had multiple steroid courses. There has been improvement while patient is on steroids. Recommend to discharge patient once stable on a tapering course of steroids. We will need to get prior authorization as outpatient for immunologic medications given eosinophilic asthma. Supplemental oxygen PRN Keep O2 saturation above 92%. Bronchodilators Pulmicort twice daily IV steroids , Solu-Medrol 40 mg IV every 8 hours. Accu-Cheks, insulin sliding scale. Recommend outpatient evaluation for TERRIE as patient has risk factors based on STOP BANG criteria. GI prophylaxis-Pepcid Prognosis: Guarded given multiple comorbidities. Rest of plan per hospitalist and other consultants. Thank you DOLORES Colbert for allowing me to participate in this patient's care. Further recommendations will depend on patient's clinical course. Please do not hesitate to contact me if you have any questions or concerns. This medical document was created using an electronic medical record system with [employer] dictation system. Although this document has been carefully reviewed, there may still be some phonetic and typographical errors. These areas are purely typographical due to imperfections of the software programs, and do not reflect any compromise in the patient's medical care. Plan discussed with: Patient, Other (RYLEY Negron) JEFE CRAMER MD Sep 03, 2024 18:56
[2024-09-04] VITALS (13 sets, daily range): BP systolic 118–145; BP diastolic 63–84; PULSE 65–87; RESP 16–20; TEMP 36.6; O2SAT 86–100
[2024-09-04] MEDS ORDERED: PRED20TA2 PO (15:02)
--- NOTE | 2024-09-04 15:51 | DVHDS2 ---
Discharge Summary Date of Admission Sep 02, 2024 at 07:22 Date of Discharge: Sep 04, 2024 Labs/Diagnostic Data: Laboratory Results Test 09/03/24 05:00 09/02/24 05:45 09/02/24 04:44 09/02/24 01:23 White Blood Count 14.0 10^3/uL (4.4-10.8) Red Blood Count 4.44 10^6/uL (4.0-5.20) Hemoglobin 13.6 g/dL (12.2-16.2) Hematocrit 40.7 % (36.0-46.0) Mean Corpuscular Volume 91.7 fL (80.0-100.0) Mean Corpuscular Hemoglobin 30.6 pg (28.0-32.0) Mean Corpuscular Hemoglobin Concent 33.3 g/dL (32.0-36.0) Red Cell Distribution Width 13.6 % (11.8-14.3) Platelet Count 199 10^3/uL (140-450) Mean Platelet Volume 9.0 fL (6.9-10.8) Neutrophils (%) (Auto) 89.6 % (37.0-80.0) Lymphocytes (%) (Auto) 5.9 % (10.0-50.0) Monocytes (%) (Auto) 4.2 % (0.0-12.0) Eosinophils (%) (Auto) 0.0 % (0.0-7.0) Basophils (%) (Auto) 0.3 % (0.0-2.0) Neutrophils # (Auto) 12.5 10 ^3/uL (1.6-8.6) Lymphocytes # (Auto) 0.8 10 ^3/uL (0.4-5.4) Monocytes # (Auto) 0.6 10 ^3/uL (0-1.3) Eosinophils # (Auto) 0 10 ^3/uL (0-0.8) Basophils # (Auto) 0 10 ^3/uL (0-0.2) Nucleated Red Blood Cells 0.2 % Sodium Level 142 mmol/L (136-145) Potassium Level 3.7 mmol/L (3.5-5.1) Chloride Level 111 mmol/L (98-107) Carbon Dioxide Level 22 mmol/L (20-31) Anion Gap 9 (5-15) Blood Urea Nitrogen 15 mg/dL (9-23) Creatinine 0.72 mg/dL (0.550-1.02) Glomerular Filtration Rate Calc 95 mL/min (>90) BUN/Creatinine Ratio 20.8 (10.0-20.0) Serum Glucose 159 mg/dL (74-106) Calcium Level 10.1 mg/dL (8.7-10.4) Total Bilirubin 0.5 mg/dL (0.2-1.0) Aspartate Amino Transferase (AST) 9 U/L (13-40) Alanine Aminotransferase (ALT) 18 U/L (7-40) Alkaline Phosphatase 78 U/L (46-116) Total Protein 6.8 g/dL (5.7-8.2) Albumin 4.3 g/dL (3.2-4.8) Thyroid Stimulating Hormone (TSH) 0.98 uIU/mL (0.55-4.78) Urine Color Yellow (Yellow) Urine Clarity Clear (Clear) Urine pH 6.5 (5.0-9.0) Urine Specific [place] 1.025 (1.001-1.035) Urine Protein Trace (Negative) Urine Ketones Trace (Negative) Urine Blood Negative /uL (Negative) Urine Nitrite Negative (Negative) Urine Bilirubin Negative (Negative) Urine Urobilinogen Normal mg/dL (Negative) Urine Leukocyte Esterase Negative /uL (Negative) Urine RBC 3 /hpf (0 - 4) Urine WBC <1 /hpf (0 - 5) Urine Squamous Epithelial Cells Few /hpf (<5) Urine Bacteria None seen /hpf (None Seen) Urine Mucus Few (None Seen) Urine Glucose Normal mg/dL (Normal) Troponin I High Sensitivity < 3 ng/L (</=34) Test 09/02/24 00:30 B-Type Natriuretic Peptide 13.04 pg/mL (0-100) Other Laboratory Tests 09/03/24 05:00 Brief Hx & Hospital Course: 59year-old female with a recent history of COVID-19 few months ago, chronic asthma presented to the hospital with the increasing shortness a breath found to have acute hypoxic exacerbation secondary to acute asthma exacerbation. Patient was treated with the IV Solu-Medrol med-nebs 40 supplementation. Patient currently saturation more than 92% on room air. Patient has a obvious diagonals off eosinophilic asthma. Pulmonary was consulted Dr. Hoffmann cleared the patient to be discharged. Patient will be discharged on tapering prednisone as prescribed. Patient currently agrees to current plan of care. She needs to follow up with the PCP and Dr. Hoffmann in 1-2 weeks. Condition at Discharge: Stable Final Diagnosis/Problems List 1. Acute hypoxic respiratory failure secondary to acute asthma exacerbation 2. Acute asthma exacerbation 3. Morbid obesity classII Discharge Disposition: Home SNF Discharge Will this Physician continue t: No Discharge Instruct/Medications Diet: Cardiac 2g Na,low cholest Activity: No Restrictions, As Tolerated Follow Up/Referral: Follow up with the PCP in 1-2 weeks Follow up with Dr. Hoffmann in 1-2 beats Medications: Prednisone 40 mg p.o. q.day for seven days 30 mg p.o. q.day for seven days 20 mg p.o. daily for seven days 10 mg p.o. daily for seven days and then stop Discharge Statement: "Patient was advised to return to the ER or call 911 if any headaches, dizziness, shortness of breath, chest pain, abdominal pain, bleeding, fevers, or worsening of medical condition. Patient was counseled about treatment plan, medications, possible side effects, patientverbalized understanding. All questions were answered to the best of my ability. This discharge took greater then 30 minutes in planning, reviewing documentation, counseling the patient, and discussing with other team members." ASSESSMENT ASSESSMENT Assessment -year-old female with a recent history of COVID-19 few months ago, chronic asthma presented to the hospital with the increasing shortness a breath found to have 1. Acute hypoxic respiratory failure secondary to acute asthma exacerbation 2. Acute asthma exacerbation 3. Morbid obesity classII Date of Service: Sep 04, 2024 Billing Provider: MICHELA QUEVEDO MD Common Visit Codes: [id number] DISCH DAY >30min MICHELA QUEVEDO MD Sep 04, 2024 15:51
--- NOTE | 2024-09-04 18:29 | DVHPN2 ---
Progress Note - Dictate Date Seen: Sep 04, 2024 Medical Necessity Reason Pt with a Central, PICC or Fol: No Subjective Patient seen and examined at bedside. Breathing comfortably on room air. Overnight events reviewed. vital signs Vital Sign Date Time Temp Pulse Resp B/P (MAP) Pulse Ox O2 Delivery O2 Flow Rate FiO2 09/04/24 17:32 36.6 81 18 94 09/04/24 13:00 118/70 (86) 09/04/24 10:05 Room Air* 0 21 Total Intake and Output 09/03/24 09/03/24 09/04/24 15:00 23:00 07:00 Intake Total 1040 ml 480 ml Output Total 800 ml Balance 1040 ml -320 ml medications Current Medications Medications Dose Ordered Sig/Rachael Route Start Time Stop Time Status Last Admin Dose Admin Albuterol 2.5 mg Q4HPRN PRN NEB 09/02/24 04:45 09/04/24 06:58 2.5 MG Ipratropium [place] 0.5 mg Q4HPRN PRN NEB 09/02/24 04:45 09/04/24 06:58 0.5 MG Methylprednisolone Sodium Succinate 40 mg Q8HR IV 09/02/24 06:00 09/04/24 14:29 40 MG Famotidine 20 mg Q12HR IV 09/02/24 10:00 09/03/24 22:07 20 MG Sodium Chloride 10 ml Q8HR IV 09/02/24 06:00 09/04/24 14:25 10 ML Acetaminophen/ Hydrocodone Bitart 1 tab Q4HP PRN PO 09/02/24 04:45 Ondansetron HCl 4 mg Q4HP PRN IV 09/02/24 04:45 09/03/24 11:38 4 MG Docusate Sodium 100 mg BIDPRN PRN PO 09/02/24 04:45 Acetaminophen 650 mg Q6HP PRN PO 09/02/24 04:45 09/02/24 20:04 650 MG Levothyroxine Sodium 112 mcg QAM@0600 PO 09/02/24 06:00 09/04/24 05:31 112 MCG Hydralazine HCl 10 mg Q6HP PRN IV 09/02/24 04:45 Nitroglycerin 0.4 mg Q5MINP PRN SL 09/02/24 07:30 Morphine Sulfate 2 mg Q30M PRN IV 09/02/24 07:30 Budesonide 0.5 mg BID NEB 09/02/24 22:00 09/04/24 06:58 0.5 MG objective Gen.: Patient lying in bed in no apparent distress. Breathing on room air. Head: Normocephalic, atraumatic. Eyes: EOMI/PERRLA. Ears: Normal hearing. Normal anatomy. Neck/trachea: Trachea midline, supple. Nose: Normal external anatomy. Mouth: Moist mucous membranes. Chest: Decreased air entry bilaterally. No wheezing or rhonchi. Cardiovascular: Positive S1, positive S2. Regular rate and rhythm. Abdomen: Positive bowel sounds in all 4 quadrants. Soft, non-tender, non- distended. : Deferred. Rectal: Deferred. Skin: Warm, dry. Intact. Extremities: 2+ radial pulses bilaterally. No lower extremity edema. Neuro: Awake, alert, oriented x3. No gross motor or sensory deficits. Cranial nerves II through XII intact. Gait not assessed. 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 No respiratory distress. No new respiratory complaints. Continue bronchodilators Pulmicort BID IV steroids Pepcid for GI prophylaxis. Patient is stable for discharge from the pulmonary standpoint. Labs and imaging reviewed. Rest of plan as noted below. Plan: Chest x-ray imaging report reviewed. No acute opacities. No pleural effusion or pneumothorax. It appears patient's symptoms are more related to eosinophilic asthma. She has had multiple steroid courses. There has been improvement while patient is on steroids. Recommend to discharge patient once stable on a tapering course of steroids. We will need to get prior authorization as outpatient for immunologic medications given eosinophilic asthma. Supplemental oxygen PRN Keep O2 saturation above 92%. Bronchodilators Pulmicort twice daily IV steroids , Solu-Medrol 40 mg IV every 8 hours. Accu-Cheks, insulin sliding scale. Recommend outpatient evaluation for TERRIE as patient has risk factors based on STOP BANG criteria. GI prophylaxis-Pepcid Prognosis: Guarded given multiple comorbidities. Rest of plan per hospitalist and other consultants. Thank you DOLORES Colbert for allowing me to participate in this patient's care. Further recommendations will depend on patient's clinical course. Please do not hesitate to contact me if you have any questions or concerns. This medical document was created using an electronic medical record system with [employer] dictation system. Although this document has been carefully reviewed, there may still be some phonetic and typographical errors. These areas are purely typographical due to imperfections of the software programs, and do not reflect any compromise in the patient's medical care. Plan discussed with: Patient, Other (RYLEY Rosas) JEFE CRAMER MD Sep 04, 2024 18:29
--- NOTE | 2024-09-05 08:16 | ECG ---
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
== END 2024-09-04 18:35 | disposition home or self-care (01) | DRG 189 ==
LOC: ER 00:10 → TELE 07:22 → TELE-EAST 18:49
PROVIDERS: ADMIT Nurse Practitioner Family; ATTEND Nurse Practitioner Family
DX: J96.01 Acute respiratory failure with hypoxia (principal); J45.901 Unspecified asthma with (acute) exacerbation; J82.83 Eosinophilic asthma; E66.01 Morbid (severe) obesity due to excess calories; E87.6 Hypokalemia; I11.0 Hypertensive heart disease with heart failure; I50.9 Heart failure, unspecified; Z68.35 Body mass index [BMI] 35.0-35.9, adult; Z83.3 Family history of diabetes mellitus; Z82.5 Family history of asthma and other chronic lower respiratory diseases; Z82.49 Family history of ischemic heart disease and other diseases of the circulatory system
CPT/HCPCS: 36415; 71045; 80048; 80053; 81001; 83880; 84443; 84484; 85025; 90656; 93005; 94640; 99291; G0378; J2405; J3490